=== PATIENT | male | born 1940 | race Caucasian/White ===

== ENCOUNTER 2016-07-29 12:43 | Emergency (ER) | payer OTHER ==
[~2016-07-29 12:43] MED LIST: ACTOS15 MG PO; ANORO ELLIPTA1 EACH IH; ASPIR 8181 MG PO; AVODART0.5 MG PO; AZELASTINE137 MCG/0. NS; BETAMETHASONE D45 G1 TOP; BRILINTA90 MG PO; CALCIPOTRIENE120 GM TOP; CLINDAMYCIN HC300 MG PO; CLOBETASOL EMOL30 GM TOP; COREG12.5 MG PO; COZAAR50 MG PO; CULTURELLE1 EACH PO; EFFEXOR XR150 MG PO; FLUTICASONE PRO16 GM NS; GLUCOPHAGE1000 MG PO; KETOCONAZOLE15 GM TOP; KLONOPIN0.5 MG PO; LANTUS100 UNIT/1 SQ; LIPITOR20 MG PO; MICROZIDE12.5 MG PO; MIRTAZAPINE15 MG PO; NOVOLOG1 UNIT/0.0 SQ; NYSTATIN1 EAC1 TOP; UROXATRAL10 MG PO; ZYVOX600 MG PO
== END 2016-07-29 13:18 | disposition home or self-care (01) ==
LOC: ER 12:43
DX: B35.6 Tinea cruris (principal); F41.9 Anxiety disorder, unspecified; E11.9 Type 2 diabetes mellitus without complications; I10 Essential (primary) hypertension; E66.9 Obesity, unspecified; E78.00 Pure hypercholesterolemia, unspecified; Z79.82 Long term (current) use of aspirin; Z79.899 Other long term (current) drug therapy; Z88.1 Allergy status to other antibiotic agents